=== PATIENT | female | born 1985 | race Caucasian/White ===

== ENCOUNTER 2024-09-06 16:35 | Emergency (ER) | payer BC, OTHER ==
[2024-09-06] MEDS: Ondansetron 4 MG Tab.DIS PO STA (18:13)
== END 2024-09-06 19:49 | disposition home or self-care (01) ==
LOC: MW.ED 16:35
DX: S09.90XA Unspecified injury of head, initial encounter (principal); R11.0 Nausea; Z88.2 Allergy status to sulfonamides; Z88.8 Allergy status to other drugs, medicaments and biological substances; Z91.018 Allergy to other foods; Z79.899 Other long term (current) drug therapy; Z75.8 Other problems related to medical facilities and other health care; W00.0XXA Fall on same level due to ice and snow, initial encounter
CPT/HCPCS: 70450; 87428; 99284; A9270; 99283